=== PATIENT | male | born 1975 | race Caucasian/White ===

== ENCOUNTER 2021-09-18 12:14 | Outpatient (CLI) | payer OTHER | END 2021-09-18 12:15 | disposition home or self-care (01) | LOC: TBSIIMAG 12:14 | PROVIDERS: ATTEND Orthopaedic Surgery | DX: M23.91 Unspecified internal derangement of right knee (principal); S83.521A Sprain of posterior cruciate ligament of right knee, initial encounter; S83.241A Other tear of medial meniscus, current injury, right knee, initial encounter ==